=== PATIENT | male | born 1980 | race Caucasian/White ===

== ENCOUNTER 2019-08-22 22:54 | Observation (INO) ==
[2019-08-22] MEDS ORDERED: DIPHTHERIA/TETANUS ADULT VACCINE 0.5 ML SYRINGE IM ONE (23:25)
[2019-08-22 23:45] LABS: Basophils # 0.1 10*3/uL (0.0-0.2); Basophils % 1.4 % (0.0-0.8); Eosinophils # 0.5 10*3/uL (0.0-0.87); Eosinophils % 6.1 % (0.00-10.9); Hematocrit 41.1 VOL% (42.0-52.0); Hemoglobin 13.4 GM/DL (14.0-18.0); Immature Granulocytes % 0.4 %; Immature Granulocytes Absolute 0.03 #; Lymphocytes % 41.2 % (21.2-54.2); Mean Corpuscular HGB Conc 32.6 GM/DL (32-36); Mean Corpuscular Volume 90.7 FL (87-102); Mean Platelet Volume 9.6 FL (9.6-12.0); Monocytes % 9.8 % (1.7-12.7); Neutrophils % 41.1 % (38.7-73.9); Platelet Count 217 T/CUMM (130-400); Red Blood Count 4.53 MC/CUMM (3.8-5.5); Red Cell Distribution Width 12.9 % (9.3-17.3); White Blood Count 7.4 T/CUMM (4-12)
[2019-08-22 23:56] LABS: INR 0.9; PT Patient Result 10.2 SECS (9.6-12.2); Partial Thromboplastin Time 24.5 SECS (20.8-36.0)
[2019-08-23 00:11] LABS: Alanine Aminotransferase 35 U/L (16-61); Albumin 3.4 G/DL (3.4-5.0); Alkaline Phosphatase 47 U/L (45-117); Aspartate Amino Transferase 28 U/L (0-37); Bilirubin,Total < 0.39 MG/DL (0.2-1.0); Blood Urea Nitrogen 18 MG/DL (7-18); Estimated Glom Filtration Rate 111 ML/MIN; Glucose 94 MG/DL (74-106); Osmolality,Calculated 282.3 MOS/KG (273-304); Total Protein 6.8 G/DL (6.4-8.3)
[2019-08-23 00:50] LABS: Barbiturates Screen,Urine Negative (Negative); Benzodiazepines Screen,Urine Positive (Negative); Cannabinoid Screen,Urine Positive (Negative); Opiate Screen,Urine Positive (Negative); Phencyclidine Screen,Urine Negative (Negative)
[2019-08-23] MEDS ORDERED: ONDANSETRON 4 MG/2 ML VIAL IV PRN (00:59)
[2019-08-23 05:18] LABS: Basophils # 0.1 10*3/uL (0.0-0.2); Eosinophils # 0.5 10*3/uL (0.0-0.87); Eosinophils % 6.3 % (0.00-10.9); Hematocrit 40.9 VOL% (42.0-52.0); Hemoglobin 13.3 GM/DL (14.0-18.0); Immature Granulocytes % 0.4 %; Immature Granulocytes Absolute 0.03 #; Lymphocytes # 2.5 10*3/uL (1.4-4.0); Lymphocytes % 30.5 % (21.2-54.2); Mean Corpuscular HGB Conc 32.5 GM/DL (32-36); Mean Corpuscular Volume 91.9 FL (87-102); Monocytes % 10.2 % (1.7-12.7); Neutrophils % 51.6 % (38.7-73.9); Platelet Count 233 T/CUMM (130-400); Red Blood Count 4.45 MC/CUMM (3.8-5.5); White Blood Count 8.2 T/CUMM (4-12)
[2019-08-23 05:41] LABS: Calcium 8.2 MG/DL (8.5-10.1); Osmolality,Calculated 279.5 MOS/KG (273-304)
[2019-08-23] MEDS: LACTATED RINGERS 1,000 ML IV SCH ×3 (05:49→19:25)
[2019-08-23] MEDS: PANTOPRAZOLE 40 MG TABLET PO SCH (08:51)
[2019-08-23] MEDS: ceFAZolin 1,000 MG in SYRINGE 1 EACH IV SCH ×3 (09:06→23:06)
[2019-08-23] MEDS: ACETAMINOPHEN 325 MG TABLET PO PRN (13:53)
[2019-08-24] MEDS: ACETAMINOPHEN 325 MG TABLET PO PRN ×3 (00:15→18:45)
[2019-08-24] MEDS: LACTATED RINGERS 1,000 ML IV SCH ×3 (03:25→18:45)
[2019-08-24] MEDS ORDERED: LIDOCAINE 1%/EPI INJ 20 ML VIAL ONE (06:16)
[2019-08-24] MEDS ORDERED: MUPIROCIN 2% OINT 22 GM TUBE TOP ONE (06:16)
[2019-08-24] MEDS ORDERED: CIPROFLOXACIN/DEXAMETHASONE OTIC SUSP 7.5 ML BOTTLE ONE (06:16)
[2019-08-24] MEDS ORDERED: OXYMETAZOLINE 0.05% NASAL SPRAY 15 ML BOTTLE ONE (06:16)
[2019-08-24] MEDS: PANTOPRAZOLE 40 MG TABLET PO SCH (09:23)
[2019-08-24] MEDS: ceFAZolin 1,000 MG in SYRINGE 1 EACH IV SCH ×3 (09:24→23:09)
[2019-08-24] MEDS ORDERED: TISSUE ADHESIVE 1 EACH APPLICATOR TOP ONE ×2 (14:12→14:13)
[2019-08-24] MEDS ORDERED: HYDROmorphone 2 MG/1 ML VIAL IV PRN (14:37)
[2019-08-24] MEDS ORDERED: ONDANSETRON 4 MG/2 ML VIAL IV PRN (14:37)
[2019-08-24] MEDS ORDERED: propofoL 200 MG/20 ML VIAL IV ONE (14:45)
[2019-08-24] MEDS ORDERED: LIDOCAINE 2% 5 ML VIAL ONE (14:45)
[2019-08-24] MEDS ORDERED: ONDANSETRON 4 MG/2 ML VIAL ONE ×2 (14:46→14:52)
[2019-08-24] MEDS ORDERED: MIDAZOLAM 2 MG/2 ML VIAL ONE (14:46)
[2019-08-24] MEDS ORDERED: PHENYLEPHRINE 10 MG/1 ML VIAL IV ONE (14:46)
[2019-08-24] MEDS ORDERED: PHENYLEPHRINE 1 MG/10 ML SYRINGE IV ONE (14:46)
[2019-08-24] MEDS ORDERED: SEVOFLURANE 1 UNIT/15 MINUTE INH ONE (14:46)
[2019-08-24] MEDS ORDERED: fentaNYL 100 MCG/2 ML VIAL ONE (14:46)
[2019-08-24] MEDS ORDERED: SUCCINYLCHOLINE 200 MG/10 ML VIAL ONE (14:46)
[2019-08-24] MEDS ORDERED: SODIUM CHLORIDE 0.9% 250 ML IV ONE (14:46)
[2019-08-24] MEDS ORDERED: HYDROmorphone 2 MG/1 ML VIAL ONE (14:52)
[2019-08-24] MEDS ORDERED: IBUPROFEN 600 MG TABLET PO PRN (19:58)
[2019-08-24] MEDS: KETOROLAC 30 MG/1 ML VIAL IV PRN (20:10)
[2019-08-25] MEDS: LACTATED RINGERS 1,000 ML IV SCH (01:00)
[2019-08-25] MEDS: KETOROLAC 30 MG/1 ML VIAL IV PRN (06:55)
[2019-08-25] MEDS: ceFAZolin 1,000 MG in SYRINGE 1 EACH IV SCH (07:49)
[2019-08-25 07:51] VITALS: BP 129/88
== END 2019-08-25 08:28 | disposition home or self-care (01) ==
LOC: EDUNIT# → EDBD → N.EDINP 22:54 → N.ED 22:54 → N.3E 08-23 01:21
PROVIDERS: ADMIT Otolaryngology; ATTEND Otolaryngology